=== PATIENT | male | born 1935 | race Caucasian/White ===

== ENCOUNTER 2020-02-14 14:12 | Outpatient (CLI) | payer MEDICARE, BC ==
--- NOTE | 2020-02-14 14:59 | RAD ---
PA AND LATERAL CHEST: 02/14/20 HISTORY: Cough from bronchitis. COMPARISON: 09/06/19 exam. Heart size within normal limits. Aortic valve stent is present. Post sternotomy changes and pacemaker noted. There has been development of a very large right pleural effusion with associated atelectasis . Left lung is clear. IMPRESSION: Development of a large right sided pleural effusion. POS: C[facility]
== END 2020-02-14 14:13 | disposition home or self-care (01) ==
LOC: SCSRAD 14:12
PROVIDERS: ATTEND Family Medicine
DX: R05 Cough (principal); J90 Pleural effusion, not elsewhere classified
CPT/HCPCS: 71046

== ENCOUNTER → 2020-03-11 | Day surgery (SDC) | payer MEDICARE, BC ==
--- NOTE | 2020-03-11 08:54 | PDOC.THORA ---
Thoracentesis Procedure Note - Procedure Date: 03/11/20 Time: 08:52 - PreProcedure Diagnosis: hemorrhagic pleural effusion - PostProcedure Diagnosis: same - Description Patient tolerated procedure: no complications Procedure in Details: Informed consent obtained prior to procedure. Ultrasound used to find most appropriate entry site. Right 5th-6th interspace at Right scapular margin. Chlorahexadine prep. Local applied. [id number] catheter inserted into pleural space and approx. 1800ml of blood pleural fluid removed and sent for appropriate studies.
[2020-03-11 09:43] LABS: RBC Count-Automated (BF) 397602 /cu.mm; WBC/Nucleated-Auto (BF) 1576 uL
[2020-03-11 10:05] LABS: Fluid, Triglycerides 31 mg/dL (Not Available); Pleural Fluid, Amylase Less than 30 U/L (Not Available); Pleural Fluid, Glucose 113 mg/dL; Pleural Fluid, LDH 328 U/L (Not Available); Pleural Fluid, Protein 3.9 g/dL
[2020-03-11 10:27] LABS: Body Fluid Source Thoracentesis Fluid
[2020-03-11 10:28] LABS: BF Color Red; Clarity Cloudy/Turbid (Clear); Tube # 3
[2020-03-11 11:47] LABS: BF Segmented Neutrophils 21 %; Cell Count Non Hematic 35 %; Eosinophils 2 %; Lymphocytes 42 %
== END ==
LOC: SDC 06:55
PROVIDERS: ATTEND Internal Medicine Critical Care Medicine
PROC: 0BJQ3ZZ Inspection of Pleura, Percutaneous Approach (ICD-10-PCS; principal; 2020-03-11)
PROC: BB4BZZZ Ultrasonography of Pleura (ICD-10-PCS; 2020-03-11)
DX: J90 Pleural effusion, not elsewhere classified (principal); I25.10 Atherosclerotic heart disease of native coronary artery without angina pectoris; E03.9 Hypothyroidism, unspecified; I12.9 Hypertensive chronic kidney disease with stage 1 through stage 4 chronic kidney disease, or unspecified chronic kidney disease; N18.9 Chronic kidney disease, unspecified; Z79.01 Long term (current) use of anticoagulants; Z79.82 Long term (current) use of aspirin; Z79.899 Other long term (current) drug therapy; Z88.2 Allergy status to sulfonamides; Z95.0 Presence of cardiac pacemaker; Z95.1 Presence of aortocoronary bypass graft; Z95.2 Presence of prosthetic heart valve
CPT/HCPCS: 32554; 82150; 82945; 83615; 83986; 84157; 84478; 85014; 85060; 87070; 87116; 87205; 87206; 88112; 88184; 88305; 89051; J1642

== ENCOUNTER 2020-03-16 17:03 | Emergency (ER) | payer MEDICARE, BC ==
--- NOTE | 2020-03-16 18:08 | RAD ---
XR Chest 1 View Portable History: Fever at home after thoracentesis Comparison: CT of the chest February 20, 2020 Findings: Moderate-large layering right pleural effusion likely with a component of loculation. No pn eumothorax. Left lung is relatively clear. Cardiac silhouette and mediastinal contours are similar. Prior aortic valve replacement. Multiple midline sternotomy wires. Dual-lead electrode tips project over the right atrium and right ventricle. Impression: Moderate-large layering right pleural effusion with likely component of loculation.
[2020-03-16 18:34] LABS: Mean Corpuscular HGB CONC 32.3 g/dL (32.0-36.0); Mean Corpuscular Volume 96.1 fL (78.0-98.0); Mean Platelet Volume 5.9 fL (7.4-10.4); Platelet Count 282 thou/uL (130-400); Red Blood Cell (RBC) Count 3.88 mill/uL (4.70-6.10); White Blood Cell (WBC) Count 8.8 thou/uL (4.8-10.8)
[2020-03-16 18:46] LABS: ALT (SGPT) 46 U/L (8-55); AST (SGOT) 39 U/L (5-34); Albumin 3.5 g/dL (3.4-4.8); Alkaline Phosphatase 86 U/L (40-110); Anion Gap 14 mmol/L (10-20); BUN (Urea Nitrogen) 14 mg/dL (8.4-25.7); Bilirubin, Total 0.9 mg/dL (0.2-1.2); Calc. Creatinine Clearance 0 mL/min (70-130); Calcium 9.1 mg/dL (7.8-10.44); Carbon Dioxide 28 mmol/L (23-31); Chloride 95 mmol/L (98-107); Globulin 3.7 g/dL (2.4-3.5); Glucose 113 mg/dL (83-110); Potassium 4.4 mmol/L (3.5-5.1); Protein, Total 7.2 g/dL (5.8-8.1); Sodium 133 mmol/L (136-145)
[2020-03-16 18:56] LABS: Band 12 % (5-11); Eosinophils 1 % (0-10); Lymphocytes 5 % (21-51); MDiff Complete? YES; Monocytes 13 % (0-10); Neutrophil 60 % (42-75); Platelet Morphology Comment Appears Adequate; Polychromasia SLIGHT = 2-3 cells (100X) (0-2/hpf); Reactive Lymphocytes 9 % (0-10)
[2020-03-16 21:30] LABS: Bilirubin Negative (Negative); Blood, Urine Negative (Negative); Clarity Clear (Clear); Glucose, Urine (Dipstick) Normal (Negative); Ketone, Urine 10 mg/dL (Negative); Leukocyte Negative Leu/uL (Negative); Nitrite Negative (Negative); Protein, Urine (Dipstick) Negative (Neg-Trace); Specific Gravity, Urine 1.015 (1.002-1.036); Urobilinogen Normal mg/dL (Less than 2)
[2020-03-16 21:37] LABS: Lactic Acid 0.9 mmol/L (0.5-2.2)
[2020-03-17 08:25] LABS: SARS-CoV-2 MS2 Positive; SARS-CoV-2 N Gene Negative; SARS-CoV-2 S Gene Negative; SARS-CoV-2 by NAA Not Detected (NotDetected); SARS-CoV-2 orf1ab Negative
== END 2020-03-16 22:52 | disposition home or self-care (01) ==
LOC: ERS 17:03
DX: R50.9 Fever, unspecified (principal); J90 Pleural effusion, not elsewhere classified; I10 Essential (primary) hypertension; Z79.899 Other long term (current) drug therapy
CPT/HCPCS: 71045; 80053; 81003; 83605; 85025; 87040; 99284; U0003; 36415; 87635

== ENCOUNTER 2020-04-28 10:18 | Outpatient (CLI) | payer MEDICARE, BC ==
--- NOTE | 2020-04-28 10:33 | RAD ---
XR Chest Pa Lat STANDARD History: Dyspnea Comparison: Radiograph March 2020 Findings: Similar appearance moderate-large right pleural effusion with some loculation. Subtle nodule left lung base. No pneumothorax. No acute osseous abnormality. Dual-lead pacer wire electrode tip projecting of the right atrial appendage and right ventricle. Likely prominent nipple shadow left lateral hemithorax. Impression: Similar appearance of loculated right layering pleural effusion.
== END 2020-04-28 10:19 | disposition home or self-care (01) ==
LOC: BICRAD 10:18
PROVIDERS: ATTEND Internal Medicine Critical Care Medicine
DX: R06.00 Dyspnea, unspecified (principal); J90 Pleural effusion, not elsewhere classified
CPT/HCPCS: 71046

== ENCOUNTER 2020-06-11 11:22 | Outpatient (CLI) | payer MEDICARE, BC | END 2020-06-11 11:23 | disposition home or self-care (01) | LOC: BICRAD 11:22 | PROVIDERS: ATTEND Internal Medicine Critical Care Medicine | DX: R06.00 Dyspnea, unspecified (principal); J90 Pleural effusion, not elsewhere classified; J98.11 Atelectasis | CPT/HCPCS: 71046 ==

== ENCOUNTER 2020-10-13 10:43 | Outpatient (CLI) | payer MEDICARE, BC | END 2020-10-13 10:44 | disposition home or self-care (01) | LOC: BICRAD 10:43 | PROVIDERS: ATTEND Internal Medicine Critical Care Medicine | DX: R06.00 Dyspnea, unspecified (principal); J90 Pleural effusion, not elsewhere classified | CPT/HCPCS: 71046 ==

== ENCOUNTER 2021-04-15 13:01 | Outpatient (CLI) | payer MEDICARE, BC | END 2021-04-15 13:02 | disposition home or self-care (01) | LOC: RAD 13:01 | PROVIDERS: ATTEND Internal Medicine Critical Care Medicine | DX: R06.00 Dyspnea, unspecified (principal); J98.4 Other disorders of lung | CPT/HCPCS: 71046 ==

== ENCOUNTER 2021-09-13 13:19 | Outpatient (CLI) | payer MEDICARE, BC ==
[2020-03-07 16:11] LABS: SARS-CoV-2 MS2 Positive; SARS-CoV-2 N Gene Negative; SARS-CoV-2 S Gene Negative; SARS-CoV-2 by NAA Not Detected (NotDetected); SARS-CoV-2 orf1ab Negative
== END 2021-09-13 13:20 | disposition home or self-care (01) ==
LOC: RAD 13:19
PROVIDERS: ATTEND Internal Medicine Critical Care Medicine
DX: R06.00 Dyspnea, unspecified (principal); J90 Pleural effusion, not elsewhere classified
CPT/HCPCS: 71046; U0003

== ENCOUNTER 2021-12-15 13:04 | Outpatient (CLI) | payer MEDICARE, BC ==
[2021-12-15] MEDS ORDERED: Iopamidol 370 76% 100 ML VIAL ONE (13:54)
== END 2021-12-15 13:05 | disposition home or self-care (01) ==
LOC: BICCT 13:04
PROVIDERS: ATTEND Internal Medicine Critical Care Medicine
DX: R04.2 Hemoptysis (principal); J34.1 Cyst and mucocele of nose and nasal sinus; I65.23 Occlusion and stenosis of bilateral carotid arteries; R91.8 Other nonspecific abnormal finding of lung field; J98.4 Other disorders of lung; I70.90 Unspecified atherosclerosis; J92.9 Pleural plaque without asbestos; J18.1 Lobar pneumonia, unspecified organism
CPT/HCPCS: 70491; 71260; 82565; Q9967